=== PATIENT | male | born 1970 ===

== ENCOUNTER 2020-06-13 20:52 | Emergency (ER) | payer OTHER ==
[~2020-06-13] VITALS: Ht 190.5 cm; Wt 122.0 kg
[2020-06-13] MEDS ORDERED: LIDOCAINE-MPF 1%, 5ML ONE (21:29)
[2020-06-13] MEDS ORDERED: DIPH,PERTUSS(ACELL),TET VAC/PF 0.5 ML IM-VACC ONE ×2 (21:29→21:30)
--- NOTE | 2020-06-13 21:32 | NUR ---
PT AT CT.
--- NOTE | 2020-06-13 22:04 | NUR ---
ALL RESULTS ARE BACK AT THIS TIME. CHART UP FOR RECHECK.
[2020-06-13] MEDS ORDERED: CEFAZOLIN 2,000 MG in SODIUM CHLORIDE 0.9% 50 ML IV ONE (22:30)
[2020-06-13] MEDS ORDERED: LIDOCAINE 1%-EPI 1:100K, 20ML INFIL ONE (22:30)
[2020-06-13] MEDS ORDERED: CEFAZOLIN 2,000 MG in SODIUM CHLORIDE 0.9% 50 ML IV SCH (22:30)
--- NOTE | 2020-06-13 22:30 | NUR ---
MED REQUESTED FROM PHARMACY
--- NOTE | 2020-06-13 22:41 | NUR ---
PIV PLACED BY MARK[employer] SURVEY REPRESENTATIVE. IV ABX STARTED PER APR. MARKET SURVEY REPRESENTATIVE AT BEDSIDE TO CLEAN WOUNDS. ERPA AT BEDSIDE FOR ASSESSMENT AND LIDO.
--- NOTE | 2020-06-13 22:51 | NUR ---
ERMD AT BEDSIDE TO UPDATE PT AND SPOUSE ON POC.
[2020-06-13] MEDS ORDERED: CEFAZOLIN PMX 2GM/50ML 50 ML IVPB ONE (23:00)
--- NOTE | 2020-06-13 23:05 | NUR ---
REPORT GIVEN TO [facility].
--- NOTE | 2020-06-13 23:10 | NUR ---
Carine rubalcava in EDM - 06/14/20 at 0013 by NATHAN ASSISTED PT WITH GENTLY WIPING BLOOD OFF HIS MOUTH/FACE. PT COOPERATIVE, CALM. VSS. AT BS. AWAITING ENT CONSULT.
--- NOTE | 2020-06-13 23:10 | NUR ---
ASSISTED PT WITH GENTLY WIPING BLOOD OFF HIS MOUTH/FACE. PT COOPERATIVE, CALM. VSS. AT BS. AWAITING ENT CONSULT.
[2020-06-13 23:50] VITALS: BP 155/96
--- NOTE | 2020-06-14 00:15 | NUR ---
D/C INSTRUCTIONS, MEDS & F/U APPT RV'WD WITH PT & SPOUSE, THEY VERBALIZE UNDERSTANDING. RX GIVEN X1, AND [facility]CO RX SENT TO [facility]. PT AMBULATED OUT OF ED WITH WITHOUT DIFFICULTY.
== END 2020-06-14 00:26 | disposition home or self-care (01) ==
LOC: ED 21:22
DX: S01.81XA Laceration without foreign body of other part of head, initial encounter (principal); S01.21XA Laceration without foreign body of nose, initial encounter; I10 Essential (primary) hypertension; X58.XXXA Exposure to other specified factors, initial encounter; Y93.89 Activity, other specified; Y92.89 Other specified places as the place of occurrence of the external cause; Y99.8 Other external cause status
CPT/HCPCS: 12052; 70450; 70486; 72125; 90471; 90715; 96365; 99285; J0690